=== PATIENT | female | born 1970 | race Caucasian/White ===

== ENCOUNTER 2018-08-06 05:24 | Emergency (ER) | payer SELFPAY ==
[~2018-08-06] VITALS: Ht 165.1 cm; Wt 80.0 kg
[2018-08-06 05:29] VITALS: BP 166/79; PULSE 90; RESP 18; Ht 165.1 cm; Wt 80.0 kg
[2018-08-06] MEDS ORDERED: KETOROLAC 60 MG INJ IM STA (07:11)
[2018-08-06] MEDS ORDERED: NAPR-985 PO (09:04)
--- NOTE | 2018-08-06 16:39 | ERD ---
ER Documentation Chief Complaint Chief Complaint left shoulder pain x 2 days. denies trauma HPI 48-year-old female patient with no significant past medical history presents to ED complaining of left shoulder pain that started 2 days ago. Patient denies any trauma or injuries. Denies any excessive overhead movements with her left shoulder. Denies any nausea, vomiting, chest pain or shortness of breath, abdominal pain, fever, chills. ROS All systems reviewed and are negative except as per history of present illness. Medications Home Meds Active Scripts Naproxen* (Naprosyn*) 500 Mg Tablet, 500 MG PO BID PRN for PAIN AND/OR INFLAMMATION, #30 TAB Prov:YINA BASHIR PA-C 08/06/18 Allergies Allergies: Coded Allergies: No Known Drug Allergies (Verified Allergy, Unknown, 08/06/18) PMhx/Soc Medical and Surgical Hx: pt denies Medical Hx, pt denies Surgical Hx Hx Substance Use: No Hx Tobacco Use: No FmHx Family History: No diabetes, No coronary disease Physical Exam Vitals Vital Signs Date Temp Pulse Resp B/P (MAP) Pulse Ox O2 O2 Flow FiO2 Time Delivery Rate 08/06/18 98.8 90 18 166/79 99 05:29 (108) Physical Exam Const: Jtq-[id number]-[id number], well-nourished. In no acute distress. Head: Atraumatic, normocephalic Eyes: Normal Conjunctiva without injection ENT: Normal external ear, nose and mouth. Neck: Full range of motion. No meningismus. Resp: Clear to auscultation bilaterally. No wheezing, rhonchi, rales, or crackles. No accessory muscle use. No retractions. Cardio: Regular rate and rhythm, no murmurs Skin: No petechiae or rashes Back: No midline tenderness. No CVA tenderness. Ext: No cyanosis, or edema. Cap refill less than 2 seconds. Distal pulses intact bilaterally. Tenderness palpation of the left anterior humerus. Limited range of motion with flexion, extension and internal and external rotation of her left shoulder due to pain. Neur: Awake and alert. Normal gait and coordination. Muscle strength 5/5. Sensation intact bilaterally. Psych: Normal Mood and Affect Results 24 hrs Laboratory Tests Test 08/06/18 07:22 POC Beta HCG, Qualitative NEGATIVE Current Medications Medications Dose Sig/Jhony Start Time Status Last (Trade) Ordered Route PRN Stop Time Admin Dose Reason Admin Ketorolac 60 mg ONCE STAT 08/06/18 DC 08/06/18 Tromethamine IM 07:11 07:28 (Toradol) 08/06/18 07:12 Procedures/MDM 48-year-old female patient with no significant past medical history presents to ED complaining of left shoulder pain. Patient is afebrile and nontoxic-appeari ng. Left shoulder x-rays ordered to further evaluate patient. IMPRESSION: Unremarkable left shoulder. Patient is placed in a sling. Educated patient importance of avoiding frozen shoulder. Splint Assessment: Neurovascularly intact pre and post splint placement with good fit. Patient's extremity symptoms have stabilized while they have been evaluated in the department and are appropriate for outpatient follow up. No evidence of fractures, dislocations, compartment syndrome, neurologic injury, vascular injury, open joint, open fracture, tendon laceration, septic arthritis, osteomyelitis, DVT, foreign body, or other emergent conditions. Diagnosis: Shoulder Pain Discharge medications: Naproxen Follow up with primary care physician in 1-2 days. Instructed patient to return to the ED sooner for any worsening symptoms. Patient's questions were answered. Patient is hemodynamically stable. Patient understood and agreed with discharge plan. Patient discharged stable. Disclaimer: Inadvertent spelling and grammatical errors are likely due to EHR/dictation software use and do not reflect on the overall quality of patient care. Also, please note that the electronic time recorded on this note does not necessarily reflect the actual time of the patient encounter. Departure Diagnosis: Primary Impression: Shoulder pain Chronicity: acute Laterality: left Qualified Codes: M25.512 - Pain in left shoulder Condition: Stable Patient Instructions: Shoulder Problems, Shoulder Pain (Uncertain Cause) Referrals: [facility] 7 a.m.- 11 p.m. Every Day of the Week NO APPOINTMENT OR AUTHORIZATION NEEDED [facility] () Usted se taylor hecho un examen mdico de control que le indica que no est en jesu condicin que requiera tratamiento urgente en el Departamento de Emergencia. Un estudio ms profundo y el tratamiento de sweeney condicin pueden esperar sin ningn riesgo hasta que usted sea atendida/o en el consultorio de sweeney mdico o jesu clnica. Es responsabilidad suya arreglar jesu jessy para el seguimiento del ledy. MANEJO DE CONDICIONES NO URGENTES EN EL FUTURO 1) Si usted tiene un mdico de atencin primaria: Usted debera llamar a sweeney mdico de atencin primaria antes de venir al departamento de emergencia. Despus de las horas de consultorio, sweeney doctor o sweeney asociado/a est disponible por telfono. El mdico o enfermero de halley en el servicio telefnico puede asesorarle por zenia medio para atender el problema, o ledy contrario se puede programar jesu jessy. 2) Si usted no tiene un mdico de atencin primaria: Llame al mdico o clnica de referencia que aparece abajo valeria las horas de consultorio para hacer jesu jessy para que le vean. CLINICAS: [place] [id number] [phone] [facility] [phone] [facility]. [facility] [phone] [facility]. [place] [address] [phone] [facility]. [place] [id number] [phone] [facility]. [phone] [address] [facility] Hours: Mon-Fri 9:00 AM - 5:00 PM [facility] () Usted se taylor hecho un examen mdico de control que le indica que no est en jesu condicin que requiera tratamiento urgente en el Departamento de Emergencia. Un estudio ms profundo y el tratamiento de sweeney condicin pueden esperar sin ningn riesgo hasta que usted sea atendida/o en el consultorio de sweeney mdico o jesu clnica. Es responsabilidad suya arreglar jesu jessy para el seguimiento del ledy. MANEJO DE CONDICIONES NO URGENTES EN EL FUTURO 1) Si usted tiene un mdico de atencin primaria: Usted debera llamar a sweeney mdico de atencin primaria antes de venir al departamento de emergencia. Despus de las horas de consultorio, sweeney doctor o sweeney asociado/a est disponible por telfono. El mdico o enfermero de halley en el servicio telefnico puede asesorarle por zenia medio para atender el problema, o ledy contrario se puede programar jesu jessy. 2) Si usted no tiene un mdico de atencin primaria: Llame al mdico o condado institucions de referencia que aparece abajo valeria las horas de consultorio para hacer jesu jessy para que le vean. SI USTED NO PUEDE PAGAR PARA JEF UN MEDICO puede ir a: [facility] [address] [place], [place] [id number] [place] [address] [address] [place] [address] [facility] [address] [place] [address] [facility] [address] [place], [place] [id number] Additional Instructions: Llame al doctor MAANA y sharon jesu JESSY PARA DENTRO DE 2-3 MEDEROS para referencia de orthopedico.Dgale a la secretaria que nosotros le instruimos hacer esta jessy.Avise o llame si sweeney condicin se empeora antes de la jessy. Regresa aqui si peor o no mejor. YINA BASHIR PA-C Aug 06, 2018 16:39
== END 2018-08-06 09:09 | disposition home or self-care (01) ==
LOC: FTE 05:24
DX: M25.512 Pain in left shoulder (principal)
CPT/HCPCS: 73030; 81025; 96372; 99284; J1885